=== PATIENT | male | born 1960 | race African-American/Black ===

== ENCOUNTER 2018-09-23 16:46 | Inpatient (IN) | payer MEDICAID, OTHER ==
[~2018-09-23] VITALS: Ht 167.6 cm; Wt 115.8 kg
[~2018-09-23 16:46] MED LIST: ATENOLOL; SEE MED SHEET
[2018-09-23] MEDS ORDERED: CLOP75TA33 MT (16:58)
[2018-09-23] MEDS ORDERED: LANTUS (16:58)
[2018-09-23] MEDS ORDERED: ATOR20TA65 MT (16:58)
[2018-09-23] MEDS ORDERED: LOSA1TAB34 MT (16:58)
[2018-09-23] MEDS ORDERED: SODIUM CHLORIDE 0.9% 1,000 ML IV ONE (20:11)
[2018-09-23 20:12] LABS: CLARITY URINE CLEAR (CLEAR); COLOR URINE YELLOW (YELLOW); KETONES URINE NEGATIVE (NEGATIVE); LEUKOCYTE ESTERASE URINE NEGATIVE (NEGATIVE); NITRITE URINE NEGATIVE (NEGATIVE); OCCULT BLOOD URINE NEGATIVE (NEGATIVE); PH URINE 7.5 (4.5-8.0); PROTEIN URINE NEGATIVE (NEGATIVE); SPECIFIC GRAVITY URINE 1.015 (1.005-1.030)
[2018-09-23 20:27] LABS: *AMPHETAMINES SCREEN URINE NEGATIVE (NEGATIVE); *BARBITURATES SCREEN URINE NEGATIVE (NEGATIVE); *BENZODIAZEPINES SCREEN URINE NEGATIVE (NEGATIVE); METHADONE URINE SCREEN NEGATIVE (NEGATIVE)
[2018-09-23 20:28] LABS: *COCAINE SCREEN URINE NEGATIVE (NEGATIVE); CANNABINOID URINE SCREEN NEGATIVE (NEGATIVE); OPIATES URINE SCREEN NEGATIVE (NEGATIVE); PHENCYCLIDINE URINE SCREEN NEGATIVE (NEGATIVE)
[2018-09-23 20:50] LABS: CHLORIDE 104 mEq/L (98-107); EOSINOPHILS % 0.8 % (0.0-5.0); HEMATOCRIT. 40.4 % (42.0-52.0); HEMOGLOBIN. 13.4 g/dL (14.0-18.0); MEAN CORPUSCULAR HEMOGLOBIN 29.7 pg (28.0-32.0); MEAN CORPUSCULAR VOLUME 89.3 fL (80.0-94.0); MEAN PLATELET VOLUME 8.8 fl (7.4-10.4); MONOCYTES % 6.6 % (2.0-8.0); NEUTROPHILS % 54.6 % (40.0-76.0); PLATELET 387 x1000/uL (130-400); RED BLOOD CELL COUNT 4.52 mill/uL (4.7-6.1); RED CELL DISTRIBUTION WIDTH 15.4 % (11.6-14.6)
[2018-09-23 20:52] LABS: PROTHROMBIN TIME 10.4 sec (9.1-11.1)
[2018-09-23] MEDS ORDERED: IOHEXOL-350 100 ML BOTTLE ONE (22:19)
[2018-09-23] MEDS ORDERED: ENOXAPARIN 100MG/ML SYR SUBCUT ONE (22:45)
[2018-09-23] MEDS ORDERED: ASPIRIN 81MG TABLET PO ONE (23:30)
[2018-09-24] MEDS ORDERED: ASPIRIN 81MG TABLET PO SCH (00:15)
[2018-09-24] MEDS: IPRATROPIUM/ALBUTEROL 0.5-3(2.5)MG/3ML NEB INH SCH ×2 (01:30→21:00)
[2018-09-24 05:00] VITALS: BP 147/96
[2018-09-24] MEDS ORDERED: DEXTROSE 50% WATER 50ML SYRINGE IV PRN (05:30)
[2018-09-24 05:59] VITALS: BP 147/96
[2018-09-24] MEDS: BLOOD SUGAR DIAGNOSTIC STRIP TEST SCH ×4 (06:32→21:05)
[2018-09-24 08:00] VITALS: BP 138/73
[2018-09-24] MEDS ORDERED: ACETAMINOPHEN 325MG TABLET PO PRN (08:45)
[2018-09-24] MEDS ORDERED: IPRATROPIUM/ALBUTEROL 0.5-3(2.5)MG/3ML NEB INH PRN (08:45)
[2018-09-24] MEDS ORDERED: GUAIFENESIN 200MG/10ML SUGAR FREE UDC PO PRN (08:45)
[2018-09-24] MEDS ORDERED: MAGNESIUM/ALUMINUM HYDROXIDE/SIMETHICONE 30ML UDC PO PRN (08:45)
[2018-09-24] MEDS ORDERED: ONDANSETRON HCL 4MG/2ML INJ IV PRN (08:45)
[2018-09-24] MEDS ORDERED: DOCUSATE SODIUM 100MG CAPSULE PO PRN (08:45)
[2018-09-24] MEDS ORDERED: CLONIDINE 0.1MG TABLET PO PRN (08:45)
[2018-09-24] MEDS ORDERED: ACETAMINOPHEN 650MG SUPP PR PRN (08:45)
[2018-09-24] MEDS ORDERED: DIPHENHYDRAMINE 50MG/ML VIAL IV PRN (08:45)
[2018-09-24] MEDS ORDERED: ACETAMINOPHEN 650MG/20.3ML UDC GT PRN (08:45)
[2018-09-24] MEDS ORDERED: HYDROCODONE/ACETAMINOPHEN 5/325MG TABLET PO PRN (08:45)
[2018-09-24] MEDS ORDERED: NA PHOS,M-B/NA PHOS,DI-BA ENEMA 118ML PR PRN (09:00)
[2018-09-24] MEDS: RIVAROXABAN 15 MG TABLET PO SCH ×2 (09:44→18:14)
[2018-09-24] MEDS: INSULIN LISPRO 100 UNITS/ML SUBCUT SCH ×4 (09:57→21:05)
[2018-09-24 11:46] LABS: BASOPHILS % 1.4 % (0.0-2.0); EOSINOPHILS % 1.7 % (0.0-5.0); LYMPHOCYTES % 36.8 % (20.0-50.0); MEAN CORPUSCULAR HEMOGLOBIN 29.7 pg (28.0-32.0); MEAN CORPUSCULAR VOLUME 88.7 fL (80.0-94.0); MEAN PLATELET VOLUME 8.7 fl (7.4-10.4); MONOCYTES % 9.3 % (2.0-8.0); NEUTROPHILS % 50.8 % (40.0-76.0); PLATELET 355 x1000/uL (130-400); RED BLOOD CELL COUNT 4.39 mill/uL (4.7-6.1); RED CELL DISTRIBUTION WIDTH 15.1 % (11.6-14.6)
[2018-09-24 12:00] VITALS: BP 168/96
[2018-09-24] MEDS ORDERED: PNEUMOCOCCAL 23-VAL P-SAC VAC 0.5 ML IM ONE (12:00)
[2018-09-24 12:27] LABS: CHLORIDE 104 mEq/L (98-107)
[2018-09-24 12:38] LABS: HDL CHOLESTEROL 43 mg/dL (40-59); LDL CHOLESTEROL 110 mg/dL (5-100); T4 FREE 1.01 ng/dL (0.76-1.46)
[2018-09-24 12:54] LABS: CLARITY URINE CLOUDY (CLEAR); COLOR URINE YELLOW (YELLOW); KETONES URINE NEGATIVE (NEGATIVE); LEUKOCYTE ESTERASE URINE NEGATIVE (NEGATIVE); NITRITE URINE NEGATIVE (NEGATIVE); OCCULT BLOOD URINE NEGATIVE (NEGATIVE); PH URINE 6.5 (4.5-8.0); PROTEIN URINE NEGATIVE (NEGATIVE); SPECIFIC GRAVITY URINE 1.026 (1.005-1.030)
[2018-09-24] MEDS: SODIUM CHLORIDE 0.9% INJ 3ML FLUSH IVF SCH ×2 (13:15→21:05)
[2018-09-24 13:21] LABS: *AMPHETAMINES SCREEN URINE NEGATIVE (NEGATIVE); *BARBITURATES SCREEN URINE NEGATIVE (NEGATIVE); CANNABINOID URINE SCREEN NEGATIVE (NEGATIVE); OPIATES URINE SCREEN NEGATIVE (NEGATIVE); PHENCYCLIDINE URINE SCREEN NEGATIVE (NEGATIVE)
[2018-09-24 13:22] LABS: *BENZODIAZEPINES SCREEN URINE NEGATIVE (NEGATIVE); *COCAINE SCREEN URINE NEGATIVE (NEGATIVE); METHADONE URINE SCREEN NEGATIVE (NEGATIVE)
[2018-09-24 16:00] VITALS: BP 129/82
[2018-09-24 20:30] LABS: CREATINE KINASE 121 IU/L (39-308)
[2018-09-24 20:32] LABS: CREATINE KINASE MB FRACTION < 1.0 ng/mL (0.5-3.6)
[2018-09-24 20:39] VITALS: BP 117/97
[2018-09-25 00:30] VITALS: BP 132/90
[2018-09-25 00:44] LABS: CREATINE KINASE 108 IU/L (39-308)
[2018-09-25 00:45] LABS: CREATINE KINASE MB FRACTION < 1.0 ng/mL (0.5-3.6)
[2018-09-25 04:00] VITALS: BP 132/78
[2018-09-25] MEDS: SODIUM CHLORIDE 0.9% INJ 3ML FLUSH IVF SCH ×2 (06:13→13:26)
[2018-09-25] MEDS: BLOOD SUGAR DIAGNOSTIC STRIP TEST SCH ×2 (06:13→11:36)
[2018-09-25] MEDS: RIVAROXABAN 15 MG TABLET PO SCH ×2 (08:31→15:04)
[2018-09-25] MEDS: INSULIN LISPRO 100 UNITS/ML SUBCUT SCH ×2 (08:33→12:49)
[2018-09-25 12:00] VITALS: BP 142/91
[2018-09-25] MEDS ORDERED: XAR15 PO (12:54)
[2018-09-25] MEDS ORDERED: ALBUMIN HUMAN 25GM/100ML (25%) IV ONE (18:00)
== END 2018-09-25 18:37 | disposition home or self-care (01) | DRG 134 ==
LOC: ER 16:48 → 6WST 23:25 → EDBEDREQTM 23:48 → EDBEDREQ 23:48 → ENRESERV 09-24 03:28
PROVIDERS: ADMIT Family Medicine; ATTEND Family Medicine
DX: I26.99 Other pulmonary embolism without acute cor pulmonale (principal); Z68.41 Body mass index [BMI] 40.0-44.9, adult; D63.8 Anemia in other chronic diseases classified elsewhere; E11.9 Type 2 diabetes mellitus without complications; E78.5 Hyperlipidemia, unspecified; I10 Essential (primary) hypertension; K46.9 Unspecified abdominal hernia without obstruction or gangrene; E66.9 Obesity, unspecified; Z59.9 Problem related to housing and economic circumstances, unspecified; Z79.02 Long term (current) use of antithrombotics/antiplatelets; Z82.49 Family history of ischemic heart disease and other diseases of the circulatory system; Z79.899 Other long term (current) drug therapy
CPT/HCPCS: 36415; 71045; 71275; 80061; 80305; 82550; 82553; 82962; 83036; 83605; 83880; 84439; 84443; 84484; 93005; 93306; 93970; 96360; 96372; 99285; J1650; J1815; J7030; J7620; P9047; Q9967

== ENCOUNTER 2019-03-14 06:43 | Day surgery (SDC) | payer MEDICAID ==
[~2019-03-14] VITALS: Ht 167.6 cm; Wt 111.1 kg
[~2019-03-14 06:43] MED LIST changes: -ATENOLOL; +ATOR20TA65 MT; +CLOP75TA33 MT; +LANTUS; +LOSA1TAB34 MT; -SEE MED SHEET; +XAR15 PO
[2019-03-14] MEDS ORDERED: BUPIVACAINE HCL 0.5% (5MG/ML) 50ML ONE ×2 (08:06→09:24)
[2019-03-14] MEDS ORDERED: BACITRACIN 50,000 UNITS/VIAL ONE (08:07)
[2019-03-14] MEDS ORDERED: SODIUM CHLORIDE 0.9% 1,000 ML IV SCH (08:40)
[2019-03-14] MEDS ORDERED: SKIN ADHESIVE 0.7 GM EA TOP ONE (09:29)
[2019-03-14] MEDS ORDERED: PROPOFOL 200MG/20ML VIAL IV ONE ×2 (09:35→09:47)
[2019-03-14] MEDS ORDERED: MIDAZOLAM HCL 2 MG/2 ML VIAL ONE (09:35)
[2019-03-14] MEDS ORDERED: FENTANYL CITRATE/PF 50MCG/ML 2ML VIAL ONE (09:35)
[2019-03-14] MEDS ORDERED: RIVA20TA PO (09:38)
[2019-03-14] MEDS ORDERED: DEXAMETHASONE 4MG/ML 1ML VIAL ONE (09:47)
[2019-03-14] MEDS ORDERED: ONDANSETRON HCL 4MG/2ML INJ ONE (09:47)
[2019-03-14] MEDS ORDERED: CEFAZOLIN SODIUM 1000MG/VIAL ONE (10:13)
[2019-03-14] MEDS ORDERED: LIDOCAINE HCL/PF 1% 10 MG/ML 5ML VIAL ONE (10:13)
[2019-03-14] MEDS ORDERED: SODIUM CHLORIDE 0.9% 10ML VIAL ONE (10:13)
[2019-03-14] MEDS ORDERED: LABETALOL 5MG/ML SYR 20 MG/4 ML SYRINGE IV PRN (10:15)
[2019-03-14] MEDS ORDERED: HYDROMORPHONE HCL/PF 2MG/ML CPJ IV PRN (10:15)
[2019-03-14] MEDS ORDERED: MEPERIDINE HCL/PF 25MG/ML CPJ IV PRN (10:15)
[2019-03-14] MEDS ORDERED: ONDANSETRON HCL 4MG/2ML INJ IV PRN (10:15)
== END 2019-03-14 12:30 | disposition home or self-care (01) ==
LOC: OR 06:43
PROVIDERS: ATTEND Surgery
DX: D17.0 Benign lipomatous neoplasm of skin and subcutaneous tissue of head, face and neck (principal); M79.89 Other specified soft tissue disorders; I11.9 Hypertensive heart disease without heart failure; E11.9 Type 2 diabetes mellitus without complications; E66.01 Morbid (severe) obesity due to excess calories; Z79.899 Other long term (current) drug therapy; Z98.890 Other specified postprocedural states; Z68.39 Body mass index [BMI] 39.0-39.9, adult
CPT/HCPCS: 21552; 82962; 88304; 93005; G0168; J0690; J1100; J2250; J2405; J2704; J3010; J3490

== ENCOUNTER 2019-04-19 16:34 | Inpatient (IN) | payer OTHER ==
[~2019-04-19] VITALS: Ht 165.1 cm; Wt 94.8 kg
[~2019-04-19 16:34] MED LIST changes: -ASPIRIN 325MG TABLET PO ONE
[2019-04-19] MEDS ORDERED: IPRATROPIUM/ALBUTEROL 0.5-3(2.5)MG/3ML NEB INH PRN (21:00)
[2019-04-19] MEDS ORDERED: DIPHENHYDRAMINE 50MG/ML VIAL IV PRN (21:00)
[2019-04-19] MEDS ORDERED: ONDANSETRON HCL 4MG/2ML INJ IV PRN (21:00)
[2019-04-19] MEDS ORDERED: HYDROCODONE/ACETAMINOPHEN 10/325MG TABLET PO PRN (21:00)
[2019-04-19] MEDS ORDERED: NA PHOS,M-B/NA PHOS,DI-BA ENEMA 118ML PR PRN (21:00)
[2019-04-19] MEDS ORDERED: CLONIDINE 0.1MG TABLET PO PRN (21:00)
[2019-04-19] MEDS ORDERED: ACETAMINOPHEN 325MG TABLET PO PRN (21:00)
[2019-04-19] MEDS ORDERED: LORAZEPAM 2MG/ML CPJ IV PRN (21:00)
[2019-04-19] MEDS ORDERED: DEXTROSE 50% WATER 50ML SYRINGE IV PRN (21:00)
[2019-04-19] MEDS ORDERED: ENOXAPARIN 40MG/0.4ML SYR SUBCUT SCH (21:00)
[2019-04-19] MEDS ORDERED: GUAIFENESIN 200MG/10ML SUGAR FREE UDC PO PRN (21:00)
[2019-04-19] MEDS ORDERED: MORPHINE SULFATE 2 MG/ML CPJ (NOT FOR IM USE) IV PRN (21:00)
[2019-04-19] MEDS: BLOOD SUGAR DIAGNOSTIC STRIP TEST SCH (21:00)
[2019-04-19] MEDS ORDERED: HYDRALAZINE 20MG/ML VIAL IV PRN (21:00)
[2019-04-19] MEDS ORDERED: MAGNESIUM/ALUMINUM HYDROXIDE/SIMETHICONE 30ML UDC PO PRN (21:00)
[2019-04-19] MEDS ORDERED: DOCUSATE SODIUM 100MG CAPSULE PO PRN (21:00)
[2019-04-19 22:40] VITALS: BP 161/101
[2019-04-19 23:00] VITALS: BP 161/101
[2019-04-20] MEDS: SODIUM CHLORIDE 0.9% INJ 3ML FLUSH IVF SCH ×4 (00:13→21:08)
[2019-04-20] MEDS: ENOXAPARIN 30MG/0.3ML SYR SUBCUT SCH ×3 (00:34→21:07)
[2019-04-20 01:12] LABS: CREATINE KINASE 155 IU/L (39-308)
[2019-04-20 01:13] LABS: CREATINE KINASE MB FRACTION < 1.0 ng/mL (0.5-3.6)
[2019-04-20 04:20] VITALS: BP 125/65
[2019-04-20] MEDS: BLOOD SUGAR DIAGNOSTIC STRIP TEST SCH ×4 (06:14→21:08)
[2019-04-20] MEDS: INSULIN LISPRO 100 UNITS/ML SUBCUT SCH ×4 (06:19→21:16)
[2019-04-20 08:00] VITALS: BP 124/77
[2019-04-20 09:13] LABS: BASOPHILS % 3.2 % (0.0-2.0); EOSINOPHILS % 1.9 % (0.0-5.0); HEMATOCRIT. 38.8 % (42.0-52.0); HEMOGLOBIN. 13.2 g/dL (14.0-18.0); LYMPHOCYTES % 35.1 % (20.0-50.0); MEAN CORPUSCULAR HEMOGLOBIN 30.7 pg (28.0-32.0); MEAN CORPUSCULAR VOLUME 90.1 fL (80.0-94.0); MEAN PLATELET VOLUME 8.8 fl (7.4-10.4); NEUTROPHILS % 51.8 % (40.0-76.0); PLATELET 367 x1000/uL (130-400); RED CELL DISTRIBUTION WIDTH 14.3 % (11.6-14.6)
[2019-04-20 10:00] LABS: CHLORIDE 102 mEq/L (98-107)
[2019-04-20] MEDS: ASPIRIN 81MG EC TABLET PO SCH (10:05)
[2019-04-20 10:08] LABS: HDL CHOLESTEROL 40 mg/dL (40-59)
[2019-04-20 10:09] LABS: LDL CHOLESTEROL 153 mg/dL (5-100)
[2019-04-20 10:10] LABS: CREATINE KINASE MB FRACTION < 1.0 ng/mL (0.5-3.6)
[2019-04-20 10:11] LABS: CREATINE KINASE 146 IU/L (39-308)
[2019-04-20 10:13] LABS: T4 FREE 1.19 ng/dL (0.76-1.46)
[2019-04-20 12:00] VITALS: BP 111/65
[2019-04-20 16:00] VITALS: BP 137/93
[2019-04-20 20:00] VITALS: BP 102/83
[2019-04-21] VITALS: BP 114/63
[2019-04-21 04:00] VITALS: BP 105/64
[2019-04-21] MEDS: SODIUM CHLORIDE 0.9% INJ 3ML FLUSH IVF SCH ×2 (06:12→13:43)
[2019-04-21] MEDS: BLOOD SUGAR DIAGNOSTIC STRIP TEST SCH ×3 (06:20→17:00)
[2019-04-21] MEDS: INSULIN LISPRO 100 UNITS/ML SUBCUT SCH ×3 (06:21→17:38)
[2019-04-21 08:00] VITALS: BP 136/84
[2019-04-21] MEDS: ENOXAPARIN 30MG/0.3ML SYR SUBCUT SCH (08:28)
[2019-04-21] MEDS: ASPIRIN 81MG EC TABLET PO SCH (08:28)
[2019-04-21 12:00] VITALS: BP 146/95
[2019-04-21 16:00] VITALS: BP 121/95
[2019-04-21] MEDS ORDERED: ATOR20TA65 MT (17:20)
[2019-04-21 17:44] VITALS: BP 121/95
[2019-04-21] MEDS ORDERED: GABAPENTIN 100MG CAPSULE PO SCH (21:00)
[2019-04-21] MEDS ORDERED: ATORVASTATIN CALCIUM 40MG TABLET PO SCH (21:00)
== END 2019-04-21 18:30 | disposition home or self-care (01) | DRG 58 ==
LOC: ER 16:34 → 5WST 20:13 → ENRESERV 21:53
PROVIDERS: ADMIT Internal Medicine; ATTEND Internal Medicine
DX: R20.2 Paresthesia of skin (principal); E11.40 Type 2 diabetes mellitus with diabetic neuropathy, unspecified; I27.20 Pulmonary hypertension, unspecified; E66.01 Morbid (severe) obesity due to excess calories; I10 Essential (primary) hypertension; I25.10 Atherosclerotic heart disease of native coronary artery without angina pectoris; Z86.711 Personal history of pulmonary embolism; E78.5 Hyperlipidemia, unspecified; Z68.34 Body mass index [BMI] 34.0-34.9, adult; Z79.01 Long term (current) use of anticoagulants; Z86.73 Personal history of transient ischemic attack (TIA), and cerebral infarction without residual deficits; Z91.19 Patient's noncompliance with other medical treatment and regimen; Z79.4 Long term (current) use of insulin
CPT/HCPCS: 36415; 80061; 82550; 82553; 82962; 84439; 84443; 84484; 99285; J0360; J1650; J1815

== ENCOUNTER → 2019-04-19 | Emergency (ER) | payer MEDICAID, OTHER ==
[~2019-04-19] VITALS: Ht 167.6 cm; Wt 112.0 kg
[~2019-04-19] MED LIST changes: +ASPIRIN 325MG TABLET PO ONE; -CLOP75TA33 MT; -LANTUS; +RIVA20TA PO; -XAR15 PO
[2019-04-19 13:19] LABS: BASOPHILS % 0.6 % (0.0-2.0); HEMATOCRIT. 39.6 % (42.0-52.0); HEMOGLOBIN. 13.5 g/dL (14.0-18.0); LYMPHOCYTES % 39.9 % (20.0-50.0); MEAN CORPUSCULAR HEMOGLOBIN 30.8 pg (28.0-32.0); MEAN CORPUSCULAR VOLUME 90.7 fL (80.0-94.0); MEAN PLATELET VOLUME 8.8 fl (7.4-10.4); MONOCYTES % 7.9 % (2.0-8.0); NEUTROPHILS % 50.6 % (40.0-76.0); PLATELET 383 x1000/uL (130-400); RED BLOOD CELL COUNT 4.37 mill/uL (4.7-6.1); RED CELL DISTRIBUTION WIDTH 14.1 % (11.6-14.6)
[2019-04-19 13:23] LABS: CHLORIDE 102 mEq/L (98-107)
[2019-04-19 13:25] LABS: INR 1.3; PROTHROMBIN TIME 13.4 sec (9.6-11.0)
[2019-04-19 15:11] VITALS: BP 146/88
== END | disposition home or self-care (01) ==
LOC: ER 11:06 → CANBEDREQ 21:42
DX: I63.9 Cerebral infarction, unspecified (principal); E11.65 Type 2 diabetes mellitus with hyperglycemia; E11.9 Type 2 diabetes mellitus without complications; I11.9 Hypertensive heart disease without heart failure; Z98.890 Other specified postprocedural states; Z79.899 Other long term (current) drug therapy; Z86.711 Personal history of pulmonary embolism
CPT/HCPCS: 36415; 71045; 83880; 84484; 93005; 93970; 99284